=== PATIENT | female | born 1990 | race Two or more races ===

== ENCOUNTER 2021-06-30 19:22 | Emergency (ER) | payer SELFPAY ==
[~2021-06-30] VITALS: Ht 160 cm; Wt 86.2 kg
[2021-06-30 20:11] VITALS: BP 115/70
== END 2021-07-01 00:02 | disposition left against medical advice (07) ==
LOC: ER 19:26
DX: R07.89 Other chest pain (principal); Z53.21 Procedure and treatment not carried out due to patient leaving prior to being seen by health care provider
CPT/HCPCS: 93005